=== PATIENT | male | born 1985 | race American Indian/Alaskan Native ===

== ENCOUNTER 2019-06-12 20:02 | Emergency (ER) | payer SELFPAY ==
[2019-06-12 20:20] VITALS: BP 140/80
--- NOTE | 2019-06-12 21:12 | Emergency Department Report ---
Chief Complaint: Urogenital-Male Stated Complaint: PENIS DISCHARGE Time Seen by Provider: 06/12/19 21:10 - HPI History of Present Illness: pt presents with penile discharge that began today no dysuria no pain or edema in the testicles no N/V no fever no abd pain no PMHx no allergies to meds Patient has concern for STD Patient is presenting with a non-medical emergency at this time, medical screening exam performed. will refer patient to the health department for full STD panel advised pt please follow up with the health department for a full STD panel. return to the emergency room for any new or worsening symptoms. - Exam Vital Signs: Vital Signs 06/12/19 20:17 Temperature 98.1 F Pulse Rate 67 Respiratory 18 Rate Blood Pressure 140/80 O2 Sat by Pulse 98 Oximetry MSE screening note: Focused history and physical exam performed. ED Disposition for MSE Clinical Impression: Concern about STD in male without diagnosis Disposition: Z-07 MED SCREENING EXAM-LEFT Is pt being admited?: No Does the pt Need Aspirin: No Condition: Stable Additional Instructions: please follow up with the health department for a full STD panel. return to the emergency room for any new or worsening symptoms. Referrals: [facility] [Outside] - 2-3 Days Time of Disposition: 21:11 Print Language: IVORIAN
== END 2019-06-12 21:35 | disposition left against medical advice (07) ==
LOC: ED 20:02
DX: R36.9 Urethral discharge, unspecified (principal)